=== PATIENT | male | born 1975 | race Two or more races ===

== ENCOUNTER 2017-08-14 08:15 | Emergency (ER) | payer SELFPAY ==
[~2017-08-14] VITALS: Ht 170.2 cm; Wt 108.4 kg
[2017-08-14 09:20] VITALS: BP 139/93
[2017-08-14] MEDS ORDERED: METHOCARBAMOL 750 MG TABLET ONE (09:35)
[2017-08-14] MEDS ORDERED: OXYcodone/APAP 5/325MG TABLET ONE (09:36)
[2017-08-14] MEDS ORDERED: KETOROLAC 30 MG/1 ML ONE (09:36)
[2017-08-14] MEDS ORDERED: METHOCARBAMOL 750 MG TABLET PO ONE (10:00)
[2017-08-14] MEDS ORDERED: OXYcodone/APAP 5/325MG TABLET PO ONE (10:00)
[2017-08-14] MEDS ORDERED: KETOROLAC 30 MG/1 ML IM ONE (10:00)
== END 2017-08-14 10:35 | disposition home or self-care (01) ==
LOC: ED 10:00
DX: S39.012A Strain of muscle, fascia and tendon of lower back, initial encounter (principal); M51.36 Other intervertebral disc degeneration, lumbar region; X58.XXXA Exposure to other specified factors, initial encounter; Y93.89 Activity, other specified; Y92.89 Other specified places as the place of occurrence of the external cause; Y99.8 Other external cause status
CPT/HCPCS: 72110; 96372; 99284; J1885